=== PATIENT | female | born 1945 | race Caucasian/White ===

== ENCOUNTER → 2018-06-28 | Outpatient (CLI) | payer MEDICARE, OTHER ==
[2018-06-28] VITALS (39 sets, daily range): BP systolic 79–1258; BP diastolic 41–87; PULSE 53–97
[~2018-06-28] VITALS: Ht 167.6 cm; Wt 75.3 kg
[~2018-06-28] MED LIST: ATIVAN 1MG T1 MG/TAB PO; BROVANA15 MCG/2 M IH; CBD PO; COUMADIN 22.5 MG/TAB PO; IRON PO; K-DUR20 MEQ PO; LANOXIN 0.120.125 MG PO; LASIX 40MG TABL40 MG PO; NORCO 325 MG-51 TAB PO; PREDNISONE10 MG PO; REMERON 15M15 MG/TA1 PO; TOPROL XL 25MG25 MG PO; ZITHROMAX 250M250 MG PO
[2018-06-28 09:13] LABS: INR 1.1 (0.8-3.0); PROTHROMBIN TIME 12.2 SECONDS (9.7-12.8)
--- NOTE | 2018-06-28 10:20 | NUR ---
PT TAKEN INTO ULTRASOUND, PLACED ON THE CART. MONITORING EQUIPMENT PLACED ON PT.
--- NOTE | 2018-06-28 10:25 | NUR ---
PT TALKING AND PLEASANT.
--- NOTE | 2018-06-28 10:30 | NUR ---
PT GIVEN 0.5 MG VERSED AND 25 MCG FENTANYL.
== END ==
LOC: COL.RAD 08:42
PROVIDERS: Internal Medicine
DX: C34.11 Malignant neoplasm of upper lobe, right bronchus or lung (principal); C18.9 Malignant neoplasm of colon, unspecified; C78.7 Secondary malignant neoplasm of liver and intrahepatic bile duct
CPT/HCPCS: J2060; J3010